=== PATIENT | male | born 1995 | race Hispanic/Latino ===

== ENCOUNTER 2022-03-21 17:09 | Emergency (ER) | payer SELFPAY ==
[~2022-03-21] VITALS: Ht 157.5 cm; Wt 52.0 kg
[2022-03-21] MEDS ORDERED: BACTRIM DS1 TAB PO (19:03)
[2022-03-21 19:13] VITALS: BP 129/78
== END 2022-03-21 19:22 | disposition home or self-care (01) | DRG 603 ==
LOC: ED 17:09
PROC: 0H9EXZZ Drainage of Left Lower Arm Skin, External Approach (ICD-10-PCS; principal; 2022-03-21)
DX: L02.414 Cutaneous abscess of left upper limb (principal); B95.61 Methicillin susceptible Staphylococcus aureus infection as the cause of diseases classified elsewhere